=== PATIENT | female | born 1945 | race Caucasian/White ===

== ENCOUNTER 2019-12-02 11:52 | Outpatient (CLI) | payer MEDICARE, SELFPAY ==
--- NOTE | ~2019-12-02 | XR_ITS ---
XR abdomen/kub 1V DATE: 12/02/2019 12:18 INDICATION: Left flank pain TECHNIQUE: AP projection, 2 views COMPARISON: 11/22/2018 KUB FINDINGS: Right opaque sutures overlie the right upper quadrant. Radiopaque sutures and clips overlie the left upper quadrant. A vascular stent overlies the right common iliac artery. There are some nondilated gas distended small bowel segments overlying the left lower quadrant. No benita wel obstruction is evident. The psoas shadows are intact. No visceromegaly is detected. There are at least several faint calcifications overlying the left kidney and at least one overlying the right kid marybel, suggesting possible nephrolithiasis. No obvious ureteral calcified calculus is detected. Noncont rast CT abdomen pelvis examination would be more sensitive and accurate for detection and localizatio n of urinary tract stones. Bilateral calcified pelvic phleboliths are noted. IMPRESSION: Nonspecific bowel gas pattern Possible nephrolithiasis Postoperative changes of left and right upper quadrants Right common iliac artery vascular stent Reviewed, dictated and finalized at Location A. Reviewed, dictated and finalized at location A.
== END 2019-12-02 11:53 | disposition home or self-care (01) ==
PROVIDERS: PCP Internal Medicine; Visit Provider Nurse Practitioner Adult Health
DX: R10.9 Unspecified abdominal pain (principal); Z98.890 Other specified postprocedural states; Z95.828 Presence of other vascular implants and grafts
CPT/HCPCS: 74018

== ENCOUNTER 2019-12-15 10:48 | Outpatient (CLI) | payer MEDICARE, SELFPAY ==
--- NOTE | ~2019-12-15 | CT_ITS ---
EXAMINATION: CT abdomen pelvis wo con EXAM DATE: 12/15/2019 11:09 INDICATION: Left flank pain. TECHNIQUE: Spiral CT of the abdomen and pelvis was performed without contrast. Axial, coronal and sag ittal images were reviewed. The dose-length product (DLP) for this examination was 381.77 mGy-cm. T he exposure was tailored according to patient size (auto mA exposure control), and iterative reconstr uction (ASIR) was used as additional dose reduction technique. There is no prior study for compariso n. FINDINGS: There is a 4 mm right inferior calyceal stone, a 2 mm left inferior calyceal stone. There a re no ureteral stones or hydronephrosis. The uterus is not identified and has likely been surgically resected. The bladder is unremarkable. There is a 9 mm left adrenal adenoma. The right adrenal gla nd, pancreas, liver, spleen are unremarkable. Gallbladder not identified, patient likely has had cho lecystectomy. There is no retroperitoneal or pelvic lymphadenopathy. There is mild scattered arter iosclerotic disease. The appendix is not positively visualized. There is no pericecal inflammatory change to suggest appe ndicitis. There is mild scattered colonic diverticulosis. There is no adjacent inflammatory change t o suggest diverticulitis. There are surgical changes from intact gastric bypass surgery. There is ex pected amount of colonic stool. No free intraperitoneal gas. The heart is normal in size. There are no pericardial or pleural effusions. The lung bases are unremarkable. There are no osteoblastic or osteolytic lesions identified. IMPRESSION: 1. Bilateral nonobstructing calyceal stones. 2. Mild scattered colonic diverticulosis. 3. Surgical changes. Reviewed, dictated and finalized at location A.
== END 2019-12-15 10:49 | disposition home or self-care (01) ==
LOC: ANHIMG 10:49
PROVIDERS: PCP Internal Medicine; Visit Provider Nurse Practitioner Adult Health
DX: R10.9 Unspecified abdominal pain (principal); N20.0 Calculus of kidney; K57.90 Diverticulosis of intestine, part unspecified, without perforation or abscess without bleeding
CPT/HCPCS: 74176

== ENCOUNTER 2020-01-13 07:37 | Outpatient (CLI) | payer MEDICARE, SELFPAY ==
--- NOTE | ~2020-01-13 | MR_ITS ---
EXAMINATION: MR MRCP wo con/w 3D wo ind pp DATE: 01/13/2020 09:20 INDICATION: Choledocholithiasis. TECHNIQUE: Magnetic resonance imaging (MRI) of the abdomen was performed without and with 15 mL Multi Jenaro intravenous contrast. Sequences included coronal T2-weighted FS FSE, coronal T2-weighted FSE, a xial T1-weighted LAVA, coronal FS FIESTA, axial dual-echo T1-weighted SPGR, coronal lava-FLEX, sagitt al T2-weighted FSE, axial T2-weighted FSE, and axial DWI. Thick-slab T2-weighted FSE images were obta ined for magnetic resonance cholangiopancreatography (MRCP). Maximum intensity projection 3-D reconst ructions of the volumetric data were created by the technologist. Postcontrast sequences included cor onal LAVA-flex and time course of axial T1-weighted LAVA. COMPARISON: CT abdomen and pelvis 12/15/2019 FINDINGS: ABDOMEN MRI: There is a tiny right pleural effusion. The liver and spleen are normal. The gallbladder is absent. There are 6 mm and 4 mm cystic lesions in the tail of the pancreas. The adrenal glands ar e normal. There is cortical thinning of the kidneys. There are cysts in the kidneys measuring up to 6 mm on the right. There are no dilated loops of bowel. There are no pathologically enlarged lymph nod es. There is no free intraperitoneal fluid. ABDOMEN MRCP: The common duct is normal and measures 6 mm. No choledocholithiasis. IMPRESSION: 1. Normal common duct. No choledocholithiasis. 2. 6 mm and 4 mm cystic lesions of the pancreas. The differential diagnosis includes pseudocyst, intr aductal papillary mucinous neoplasm (IPMN), mucinous cystic neoplasm (MCN), serous cystadenoma, and n euroendocrine tumor. Abdomen MRI without and with contrast is recommended in 2 years. Reviewed, dictated and finalized at location A. IMPRESSION: 1. Normal common duct. No choledocholithiasis. 2. 6 mm and 4 mm cystic lesions of the pancreas. The differential diagnosis inc ludes pseudocyst, intraductal papillary mucinous neoplasm (IPMN), mucinous cyst ic neoplasm (MCN), serous cystadenoma, and neuroendocrine tumor. Abdomen MRI wi thout and with contrast is recommended in 2 years.
[2020-01-13 08:30] LABS: Estimated Glomerular Filt Rate > 60
== END 2020-01-13 07:38 | disposition home or self-care (01) ==
LOC: ANHIMG 07:45
PROVIDERS: PCP Internal Medicine; Visit Provider Internal Medicine Gastroenterology
DX: K80.50 Calculus of bile duct without cholangitis or cholecystitis without obstruction (principal)
CPT/HCPCS: 74181; 76376; A9577

== ENCOUNTER 2020-02-06 01:18 | Outpatient (CLI) | payer MEDICARE, SELFPAY ==
[2020-02-06 17:41] LABS: SARS-CoV-2 RNA PCR Negative
== END 2020-02-06 01:19 | disposition home or self-care (01) ==
LOC: ANHCOVIDDT 01:18
PROVIDERS: PCP Internal Medicine; Visit Provider Internal Medicine Gastroenterology
DX: Z01.812 Encounter for preprocedural laboratory examination (principal); Z20.828 Contact with and (suspected) exposure to other viral communicable diseases
CPT/HCPCS: 87635; C9803; U0003

== ENCOUNTER 2020-02-08 02:05 | Day surgery (SDC) | payer MEDICARE, SELFPAY ==
[2020-02-01 10:20] VITALS: BMI 28.8
[2020-02-08 11:16] VITALS: BP 99/73; PULSE 81; RESP 16; TEMP 36.6; O2SAT 100
[2020-02-08] MEDS: LACTATED RINGERS 1,000 ML 150 ML IV CONT (11:21)
--- NOTE | 2020-02-08 11:40 | PM.HPGS ---
History of Present Illness History of Present Illness Consent: Risks, benefits, and alternatives have been discussed and questions answered. Patient agrees to proceed with procedure. Chief complaint: Hx Colon Polyps/ Epigastric Pain Narrative: Herminia Hawk is a 74 year old female with epigastric pain and history of colon polyps PMFSH Past Medical History Medical History (Updated 02/08/20 @ 11:55 by Bradley Carney MD) Arthritis CVA (cerebral vascular accident) work up was normal; unknown etiology GERD (gastroesophageal reflux disease) Hyperlipidemia Social History Social History Living arrangements: with family Spiritual care concerns: No Meds Home Medications and Allergies Home Medications Medication Instructions Recorded Confirmed Type atorvastatin 80 mg PO DAILY 02/01/20 02/01/20 History glimepiride 1 mg PO DAILY 02/01/20 02/01/20 History metformin 1,000 mg PO DAILY 02/01/20 02/01/20 History oxybutynin chloride 10 mg PO DAILY 02/01/20 02/01/20 History pantoprazole 40 mg PO DAILY 02/01/20 02/01/20 History Allergies Allergy/AdvReac Type Severity Reaction Status Date / Time codeine Allergy Mild GASTRIC Verified 02/08/20 11:14 BURNING Contrast Media Allergy Severe Loss of Uncoded 11/12/18 06:53 Consciousness Vital Signs Vital Signs - 24 hr 02/08/20 11:16 Temperature 36.6 C Pulse Rate 81 Respiratory Rate 16 Blood Pressure 99/73 L Pulse Oximetry 100 Exam Const: General: alert Orientation/consciousness: patient oriented x3 Resp: Auscultation: clear to auscultation bilaterally Cardio: Rhythm: regular rhythm GI: GI Palp: Yes Soft to palpation and No Tenderness to palpation present (GI) Neuro: General: patient oriented x3 Assessment and Plan Assessment and plan (1) Epigastric pain: Code(s): R10.13 - Epigastric pain Status: Acute Assessment and Plan: EGD with possible biopsy or dilatation or cautery. (2) Colon cancer screening: Code(s): Z12.11 - Encounter for screening for malignant neoplasm of colon Status: Acute Assessment and Plan: Colonoscopy with possible biopsy or polypectomy or cautery or injection of substances.
--- NOTE | 2020-02-08 11:40 | WPDANESEPPF ---
Anes - Initial Pre Proc Eval Procedure: Operation Date: 02/08/20 11:30 Proposed Procedures p Esophagogastroduodenoscopy & Screening Colonoscopy - Bradley Carney MD Date/Time: 02/08/20 11:40 Surgeon: Bradley Carney MD Pre Op Diagnosis: Hx Colon Polyps/ Epigastric Pain Patient Data Age: 74 Gender: F Height: 5 ft 3.5 in Weight: 76.1 kg Last Vital Signs Temp 97.9 F 02/08/20 11:16 Pulse 81 02/08/20 11:16 Resp 16 02/08/20 11:16 BP 99/73 L 02/08/20 11:16 Pulse Ox 100 02/08/20 11:16 Allergies Allergy/AdvReac Type Severity Reaction Status Date / Time codeine Allergy Mild GASTRIC Verified 02/08/20 11:14 BURNING Contrast Media Allergy Severe Loss of Uncoded 11/12/18 06:53 Consciousness Home Medications Medication Instructions Recorded Confirmed Type atorvastatin 80 mg PO DAILY 02/01/20 02/01/20 History glimepiride 1 mg PO DAILY 02/01/20 02/01/20 History metformin 1,000 mg PO DAILY 02/01/20 02/01/20 History oxybutynin chloride 10 mg PO DAILY 02/01/20 02/01/20 History pantoprazole 40 mg PO DAILY 02/01/20 02/01/20 History Patient hx anesthesia problems: none Family hx anesthesia problems: none [facility] Past Medical History Medical History (Updated 02/08/20 @ 11:40 by Rishabh Webb MD) Arthritis CVA (cerebral vascular accident) work up was normal; unknown etiology GERD (gastroesophageal reflux disease) Hyperlipidemia Social History Social History Living arrangements: with family Spiritual care concerns: No Anes - Eval Final PreProcedure Day of Procedure 02/08/20 11:40 Patient weight: overweight Heart: regular rate and rhythm Lungs: clear to auscultation Airway: Mallampati scale class II Neurological: alert and oriented Last oral intake: >/= 8 hours ASA classification: III Emergent: no Anesthetic plan: proceed Anesthesia type and monitoring: general GIVS and standard monitoring Informed Consent: The patient's anesthetic plan and its attendant risks and benefits were discussed with the patient/family/POA. Questions were solicited and answers provided to the satisfaction of the patient/family/POA.
[2020-02-08 12:12] VITALS: BP 95/33; PULSE 67; RESP 23; O2SAT 98
[2020-02-08 12:22] VITALS: BP 113/40; PULSE 71; RESP 25; O2SAT 98
[2020-02-08 12:32] VITALS: BP 129/49; PULSE 71; RESP 20; O2SAT 100
== END 2020-02-08 13:03 | disposition home or self-care (01) ==
PROVIDERS: PCP Internal Medicine; Visit Provider Internal Medicine Gastroenterology
PROC: 0DJ08ZZ Inspection of Upper Intestinal Tract, Via Natural or Artificial Opening Endoscopic (ICD-10-PCS; CPT 43235; principal; 2020-02-08 11:30)
DX: Z12.11 Encounter for screening for malignant neoplasm of colon (principal); K64.8 Other hemorrhoids; Z86.010 Personal history of colon polyps; R10.12 Left upper quadrant pain; R10.13 Epigastric pain; Z98.84 Bariatric surgery status; E78.5 Hyperlipidemia, unspecified; K21.9 Gastro-esophageal reflux disease without esophagitis; Z86.73 Personal history of transient ischemic attack (TIA), and cerebral infarction without residual deficits; Z79.84 Long term (current) use of oral hypoglycemic drugs
CPT/HCPCS: 43235; G0105; J2704; J7120

== ENCOUNTER → 2020-05-08 10:17 | Outpatient (CLI) | payer MEDICARE, SELFPAY ==
--- NOTE | ~2020-05-08 | MM_ITS ---
EXAMINATION: MM screening efe BI w giuseppe HISTORY: Screening mammogram TECHNIQUE: Craniocaudal and mediolateral oblique 3-D tomosynthesis images were obtained and synthetic 2-D images were generated. CAD analysis was submitted and interpreted. COMPARISON: 07/01/2018, 03/03/2017, 10/16/2014 bilateral digital screening mammogram examinations BREAST PARENCHYMAL COMPOSITION: There are scattered areas of fibroglandular density. FINDINGS: There are scattered bilateral benign calcifications. There is no evidence of suspicious mas s, calcification, or architectural distortion to suggest malignancy in either breast. There has been no suspicious interval change. IMPRESSION: 1. No mammographic evidence of malignancy. 2. Recommend routine screening mammography in one year. BI-RADS Category 2: Benign finding(s). Reviewed, dictated and finalized at location A. ER LEVEL TEACHING ASSISTANT
--- NOTE | ~2020-05-08 | DEXA_ITS ---
Bone Density Report Name: Herminia Hawk Age: 74 Sex: Female Ethnicity: White Date of : 1945 Indication: osteopenia; height loss; hysterectomy; postmenopausal Referring Provider: NIKHIL, AVTAR Ruano Study: Bone densitometry was performed. Exam Date: May 08, 2020 Accession number: [id number] Bone Density: Region BMD T-score Z-score Classification AP Spine (L1-L4) 0.993 -0.5 1.8 Normal Femoral Neck (Left) 0.555 -2.6 -0.6 Osteoporosis Total Hip (Left) 0.647 -2.4 -0.7 Osteopenia Femoral Neck (Right) 0.631 -2.0 0.1 Osteopenia Total Hip (Right) 0.636 -2.5 -0.8 Osteoporosis Total Hip Mean 0.642 -2.5 -0.8 Osteopenia World Health Organization criteria for BMD impression classify patients as: Normal (T-score at or above -1.0), Osteopenia (T-score between -1.0 and -2.5), or Osteoporosis (T-score at or below -2.5). 10-year Fracture Risk: FRAX not reported because: Some T-score for Spine Total or Hip Total or Femoral Neck at or below -2.5 Previous Exams: Region Exam Age BMD T-score BMD Change BMD Change Date g/cm2 vs Baseline vs Previous AP Spine(L1-L4) 05/08/2020 74 0.993 -0.5 0.009 0.009 09/28/2012 67 0.983 -0.6 Total Hip(Left) 05/08/2020 74 0.647 -2.4 -0.108* -0.108* 09/28/2012 67 0.754 -1.5 Total Hip(Right) 05/08/2020 74 0.636 -2.5 -0.094* -0.094* 09/28/2012 67 0.730 -1.7 *Denotes significance at 95% confidence level, LSC for AP Spine = 0.022 g/cm2, LSC for Total Hip = 0.027 g/cm2 Clinical Information Provided by Patient: Smokes Has the following medical conditions: Hysterectomy Patient maximum height was 64 Menopause Age: 26 No regular weight bearing exercise Does not regularly consume dairy products Drinks caffeinated beverages Onset of menses at age 13 Number of children 2 Impression: The patient has osteoporosis, based on the Left Femoral Neck T-score. The patient has risk factors, including: smoking. The BMD for the Total Hip(Left) decreased, changing by -0.108 since the last DXA exam. The BMD for the Total Hip(Right) decreased, changing by -0.094 since the last DXA exam. Discussion: INCREASED RISK OF FRACTURE. BONE DENSITY IS UNDESIRABLY LOW AT ONE OR MORE SKELETAL SITES, CONSISTENT WITH POSTMENOPAUSAL OSTEOPOROSIS. This patient's lowest T-score meets the World Health Organization's (WHO) criteria for osteoporosis at one or more sites (T-score -2.5 or below). In
== END ==
PROVIDERS: PCP Internal Medicine; Visit Provider Internal Medicine
DX: Z12.31 Encounter for screening mammogram for malignant neoplasm of breast (principal); N95.9 Unspecified menopausal and perimenopausal disorder; M85.852 Other specified disorders of bone density and structure, left thigh; M85.851 Other specified disorders of bone density and structure, right thigh; M81.0 Age-related osteoporosis without current pathological fracture
CPT/HCPCS: 77063; 77067; 77080

== ENCOUNTER → 2020-11-26 11:59 | Outpatient (CLI) | payer MEDICARE, SELFPAY ==
--- NOTE | ~2020-11-26 | MR_ITS ---
EXAMINATION: MR abdomen wo/w con INDICATION: Iron deficiency anemia secondary to blood loss TECHNIQUE: Coronal SSFSE ARC, WATER:coronal LAVA-FLEX, Coronal 2D FIESTA FatSat, Axial SSFSE BH ARC, Axial 3D DualEcho BH, Axial SSFSE-IR, Axial DWI b=500, Axial 2D FIESTA FatSat, pre and dynamic postco ntrast Axial LAVA ARC, postcontrast Coronal In and Opposed phase LAVA FLEX COMPARISON: 12/24/2019 CONTRAST: 01/13/2020 FINDINGS: There are stable cystic lesions of the pancreatic tail measuring 6 mm and 4 mm. No new panc reatic lesion is identified. The liver, spleen, and adrenal glands are normal. The gallbladder is abs ent. There is cortical thinning of the kidneys. Cysts of the kidneys measure up to 10 mm on the right . There are no pathologically enlarged abdominal lymph nodes. No dilated loops of bowel are evident. IMPRESSION: 1. Stable cystic lesions of the pancreatic tail with differential as previously described. Follow-up MRI without and with contrast in two years is recommended. 2. No correlate for iron deficiency anemia. Reviewed, dictated and finalized at location B. IMPRESSION: 1. Stable cystic lesions of the pancreatic tail with differential as previously described. Follow-up MRI without and with contrast in two years is recommended . 2. No correlate for iron deficiency anemia.
[2020-11-26 12:40] LABS: Estimated Glomerular Filt Rate 49
== END ==
PROVIDERS: PCP Internal Medicine; Visit Provider Internal Medicine Medical Oncology
DX: D50.0 Iron deficiency anemia secondary to blood loss (chronic) (principal); D49.0 Neoplasm of unspecified behavior of digestive system
CPT/HCPCS: 74183; A9577

== ENCOUNTER 2021-02-13 13:02 | Outpatient (CLI) | payer MEDICARE, SELFPAY ==
--- NOTE | ~2021-02-13 | XR_ITS ---
EXAMINATION: XR barium swallow modified DATE: 02/13/2021 14:02 INDICATION: Dysphagia, unspecified TECHNIQUE: Modified barium esophagram was performed by myself to administered fluoroscopy, in conjun ction with speech pathologist who administered barium in varying consistencies as per speech patholog ist documentation. This was recorded on tape. A single fluoroscopic spot image was recorded. The DAP for this procedure was 1.395 Gycm2. Fluoroscopy exposure time was 2.3 minutes. FINDINGS: Oral stage: Adequate function. Pharyngeal phase: Adequate function. Laryngeal penetration: None. Aspiration: None. Laryngeal sensitivity: Present. IMPRESSION: Normal modified barium swallow. Please refer to speech pathologist findings and specific feeding recommendations. Reviewed, dictated and finalized at location A.
--- NOTE | 2021-02-15 12:47 | STOPEVAL ---
MODIFIED BARIUM SWALLOW STUDY Thank you for referring Herminia Hawk to [facility].? Attending Provider: Bradley Carney MD * Outpatient Evaluation Start: 02/14/21 13:50 Freq: Status: Active Protocol: Document 02/13/21 13:30 BAS (Rec: 02/14/21 13:51 BAS [email or web address]) Therapy Assessment Status Assessment Status Assessment Status Evaluation Outpatient Past Medical History Neurological History Hx Cerebrovascular Accident (CVA) Yes: 07/07 Cardiovascular History Hx Hypercholesterolemia Yes Respiratory History Hx Respiratory Disorders No Significant History Gastrointestinal History Hx Appendectomy Yes Hx Cholecystectomy Yes Hx Gastroesophageal Reflux Disease Yes Hx Other Gastrointestinal Disorders Yes: STOMACH STAPLE Genitourinary History Hx Other Genitourinary Disorders Yes: OVERACTIVE BLADDER Musculoskeletal History Hx Arthritis Yes Hx Back Pain Yes Hx Spinal Surgery Yes Hematological History Hx Hematological Disorders No Significant History Endocrine History Hx Diabetes Yes HEENT History Hx HEENT Disorders No Significant History Integumentary History Hx Skin Disorders No Significant History Pain History History of Any Previous or Ongoing No Significant History Instance of Pain Anesthesia History Hx Anesthesia Reactions No Significant History Pain Assessment Timing of Pain Assessment Timing of Pain Assessment Assessment Self Report Self Report Pain Level 0 Pain Score Pain Score 0: Self Report Modified Barium Swallow Evaluation Consistency Solid Consistency 5 mL Other Amount cracker Method of Presentation Spoon Oral Preparatory Symptoms Within Functional Limits Oral Phase Symptoms Within Functional Limits Pharyngeal Phase Symptoms Within Functional Limits, Residue in [place],Residue/ Pyriform Sinus Severity of Vallecular Residue Trace - 1-5 % Trace Coating of the Mucosa Severity of Pyriform Sinus Residue Mild - 5-25 % Up Wall to Quarter Full 8 Point Laryngeal Penetration-Aspiration Material Does Not Enter Airway Scale Cervical/Esophageal Symptoms Within Functional Limits Mixed Consistency 5 mL Other Amount Cut up fruit with syrup coated /mixed with pudding Method of Presentation Spoon Oral Preparatory Symptoms Within Functional Limits Oral Phase Symptoms Within Functional Limits Pharyngeal Phase Symptoms Within Functional Limits, Residue in [place],Residue/ Pyriform Sinus
== END 2021-02-13 13:03 | disposition home or self-care (01) ==
LOC: ANHIMG 13:06
PROVIDERS: PCP Internal Medicine; Visit Provider Internal Medicine Gastroenterology
DX: R13.10 Dysphagia, unspecified (principal)
CPT/HCPCS: 92611

== ENCOUNTER 2021-02-18 10:36 | Outpatient (CLI) | payer MEDICARE, SELFPAY ==
--- NOTE | ~2021-02-18 | CT_ITS ---
EXAMINATION: CT soft tissue neck wo con EXAM DATE: 02/18/2021 10:57 INDICATION: Dysphagia with hard foods. Contrast allergy. TECHNIQUE: Spiral CT of the neck was performed without contrast. Axial, coronal and sagittal images were reviewed. The dose-length product (DLP) for this examination was 297.59 mGy-cm. The exposure was tailored according to patient size (auto mA exposure control), and iterative reconstruction (ASIR ) was used as additional dose reduction technique. There is no prior study for comparison. FINDINGS: The thyroid gland is unremarkable. The submandibular and parotid glands are symmetric. There is no cervical lymphadenopathy. There are no masses identified. The superior mediastinum is unremarkable. Some low-density in the dependent aspect of the tracheal airway incompletely imaged but imaged portion density suggests this is mucous. Parapharyngeal and pre-glottic fat planes are pr eserved. Limited evaluation of cervical vessels on this noncontrast study. There is mild left carot id bulb arterial sclerosis. The orbits are unremarkable. Visualized sinuses and mastoid air cells are well aerated. Lung apices are clear. Moderate disc disease at C5-6 and 6-7. IMPRESSION: 1. Some low-density endotracheal material probably mucous. 2. Lower cervical disc disease. Reviewed, dictated and finalized at location A.
== END 2021-02-18 10:37 | disposition home or self-care (01) ==
LOC: ANHIMG 10:38
PROVIDERS: PCP Internal Medicine; Visit Provider Internal Medicine Medical Oncology
DX: R13.10 Dysphagia, unspecified (principal); M50.30 Other cervical disc degeneration, unspecified cervical region
CPT/HCPCS: 70490

== ENCOUNTER 2021-04-22 13:13 | Outpatient (CLI) | payer MEDICARE, SELFPAY ==
--- NOTE | ~2021-04-22 | XR_ITS ---
EXAMINATION: XR abdomen/kub 1V EXAM DATE: 04/22/2021 13:34 INDICATION: Right ureteral stone follow-up. TECHNIQUE: Frontal projection of the upper abdomen, frontal projection lower abdomen/pelvis for inter pretation. Comparison is made to prior examination from 12/02/2019. FINDINGS: There is a right-sided double-J ureteral stent in position. There is approximately 8 mm ca lcification along the proximal aspect of the stent which could be a ureteral stone. There is bowel ga s obscuring both renal contours but possibility of smaller bilateral nephrolithiasis. Small densities projecting over the distal aspect of the stent are probably phleboliths seen on prior study. No smal l bowel obstruction. There are bony degenerative changes. IMPRESSION: 1. Right ureteral stent in position. 2. Probable right proximal ureteral stone, smaller bilateral nephrolithiasis. Reviewed, dictated and finalized at location A. NG MACHINE SET UP OPERATOR
== END 2021-04-22 13:14 | disposition home or self-care (01) ==
LOC: ANHIMG 13:18
PROVIDERS: PCP Internal Medicine; Visit Provider Urology
DX: N20.1 Calculus of ureter (principal)
CPT/HCPCS: 74018

== ENCOUNTER 2021-05-02 10:48 | Outpatient (CLI) | payer MEDICARE, SELFPAY ==
--- NOTE | 2021-05-02 11:00 | ECG_ITS ---
Measurements Intervals [place] Rate: 79 P: 67 AL: 141 QRS: -22 QRSD: 126 T: 13 QT: 395 QTc: 453 Interpretive Statements SINUS RHYTHM POSSIBLE LEFT ATRIAL ENLARGEMENT RIGHT BUNDLE BRANCH BLOCK BASELINE ARTIFACT- I, AVR, V2, V4-V6 ABNORMAL ECG Electronically Signed On 05-02-2021 11:25:58 FOOTWEAR SALES LEADER by Carl Maya D.O.
[2021-05-02 11:52] LABS: Hematocrit 39.7 % (37.0-47.0); Hemoglobin 12.7 g/dL (12.0-15.0)
[2021-05-02 12:00] LABS: Anion Gap 6 mmol/L (8-16); Blood Urea Nitrogen 18 mg/dL (7-17); Calcium 7.8 mg/dL (8.4-10.2); Carbon Dioxide 25 mmol/L (22-30); Chloride 102 mmol/L (98-107); Estimated Glomerular Filt Rate 34; Glucose 230 mg/dL (65-110); Potassium 3.7 mmol/L (3.4-5.0); Sodium 133 mmol/L (137-145)
[2021-05-02 12:05] LABS: INR 1.1; Prothrombin Time 13.8 Seconds (11.1-14.7)
[2021-05-02 12:06] LABS: Partial Thromboplastin Time 26.6 SECONDS (22.3-36.8)
== END 2021-05-02 10:49 | disposition home or self-care (01) ==
LOC: ANHSURGERY 10:55
PROVIDERS: Anesthesiology; PCP Internal Medicine; Visit Provider Urology
DX: N20.1 Calculus of ureter (principal); D50.9 Iron deficiency anemia, unspecified; E11.9 Type 2 diabetes mellitus without complications; I51.9 Heart disease, unspecified; Z01.818 Encounter for other preprocedural examination; I45.10 Unspecified right bundle-branch block
CPT/HCPCS: 36415; 80048; 85014; 85018; 85610; 85730; 87086; 87088; 93005

== ENCOUNTER 2021-05-10 01:18 | Day surgery (SDC) | payer MEDICARE, SELFPAY ==
[2021-04-29 13:52] VITALS: BMI 23.0
--- NOTE | 2021-04-29 14:30 | PC.NURSE ---
Report to the Outpatient Waiting Room, entrance under the green pavilion located off [facility], at time __6:00AM on date __05/10/21 . OR Time: __7:30AM . - You and your visitor will be asked a series of questions to screen for COVID 19 for your protection. - A mask is required within the hospital. - Only one visitor is allowed at this time. Patient visitors will be guided where to wait when not with patient. Preoperative COVID Testing Requirements: No COVID Test needed if: (proof is required; if not received patient will have Rapid Test prior to entry) - Patient has received COVID Vaccine at least 14 days prior to procedure date or - Patient has positive COVID test result within last 90 days of surgery date. COVID Test needed if above criteria is not met If not COVID vaccinated a COVID test must be conducted within 72 hours of surgery and patient is asked to isolate self from time of testing until procedure. You will go to the [email or web address] Testing Site for your COVID testing. The [email or web address] Testing site is located at the corner of [address] from [facility]. You will only be called if COVID results are positive and your surgeon may reschedule your elective surgery date. Patients may have clear liquids (water, carbonated beverages, clear teas, apple juice) until 3 hours prior to surgery with a maximum of 20 ounces. - No food from midnight until time of surgery - Infants may have breast milk until 4 hours before surgery, infant formula 6 hours prior to surgery. - Children will be allowed to drink immediately following surgery. If applicable, please bring a bottle or sippy cup to assist with drinking. Juice, water, soda, and popsicles are readily available. For infants on formula, please bring formula the day of surgery. Pacifiers are allowed. Take the following medications with a SIP of water the morning of surgery: ___TRAMADOL NEEDED Medications to discontinue per physician NONE Date to take last dose Please no make-up, nail uzbek, hairspray, perfume, deodorant, or body powder the day of surgery. No jewelry (including any body piercings) or valuables the day of surgery, leave them at home. Please take a shower or bath the night before, or the morning of, surgery with an antibacterial soap. Wear comfortable, loose fitting clothing. Children are encouraged to wear pajamas. - Jewelry must be removed prior to entering the operating room. Rings and piercings that are not removed may be cut off. - The hospital will not accept responsibility for valuables. - Please leave all valuables, including medications, at home the day of surgery. If you are going home after surgery, a licensed straddle bug driver must drive you home. - NO public transportation without another adult. - We recommend that an adult stay with you for 24 hours following discharge. - We also recommend that you do not drive, make important decision, drink alcoholic beverages, or take any drugs that were not prescribed by your health care provider for at least 24 hours after your discharge time. For Pediatric surgeries, we recommend two adults accompany the child home (only one inside the building at this time). Follow any additional instructions given to you from your surgeon. Telephone instructions given to ___PATIENT and asked if any additional questions and then verbalized understanding. Patient advised to call surgeon office or pre surgery nurse liaison [phone] if any additional questions.
--- NOTE | 2021-05-09 15:08 | WPDANESEPPF ---
Anes - Initial Pre Proc Eval Procedure: Operation Date: 05/10/21 08:15 Proposed Procedures p Right Extracorporeal Shock Wave Lithotripsy - Denis Rose MD <Gabino Johnson, DO - Last Filed: 05/11/21 12:59> Date/Time: 05/09/21 15:08 <Gabino Johnson, DO - Last Filed: 05/11/21 12:59> Surgeon: Denis Rose MD <Gabino Johnson, DO - Last Filed: 05/11/21 12:59> Pre Op Diagnosis: right ureteral stone <Gabino Johnson DO - Last Filed: 05/11/21 12:59> Patient Data Age: 75 Gender: F Height: 1.6 m Weight: 59 kg <Gabino Johnson DO - Last Filed: 05/11/21 12:59> Allergies Allergy/AdvReac Type Severity Reaction Status Date / Time codeine AdvReac Mild GASTRIC Verified 05/10/21 10:22 BURNING Contrast Media Allergy Severe Loss of Uncoded 05/10/21 10:22 Consciousness <Gabino Johnson DO - Last Filed: 05/11/21 12:59> Home Medications Medication Instructions Recorded Confirmed Type metoclopramide HCl 10 mg tablet 10 mg PO BID PRN 02/05/21 05/10/21 History sucralfate 1 gram tablet 1 g PO BID tablet 02/05/21 05/10/21 History levofloxacin 750 mg PO EVERY OTHER DAY 04/29/21 05/10/21 History tramadol 50 mg PO Q6-8H PRN 04/29/21 05/10/21 History <Gabino Johnson DO - Last Filed: 05/11/21 12:59> Patient hx anesthesia problems: none <Ramu Oliveros MD - Last Filed: 05/10/21 06:57> Family hx anesthesia problems: none <Ramu Oliveros MD - Last Filed: 05/10/21 06:57> Results Review: All pre-operative results and documents have been reviewed as part of the pre-operative evaluation. <Gabino Johnson DO - Last Filed: 05/11/21 12:59> [facility] Past Medical History Medical History: Medical History (Updated 05/09/21 @ 15:09 by Gabino Johnson DO) Arthritis CVA (cerebral vascular accident) work up was normal; unknown etiology Diabetes type 2, controlled GERD (gastroesophageal reflux disease) Hyperlipidemia PVD (peripheral vascular disease) <Gabino Johnson DO - Last Filed: 05/11/21 12:59> Surgical History Surgical History: Surgical History (Updated 05/09/21 @ 15:09 by Gabino Johnson DO) History of appendectomy History of hysterectomy S/P insertion of iliac artery stent Status post gastric bypass for obesity <Gabino Johnson DO - Last Filed: 05/11/21 12:59> Family History Family History: Family History (Updated 02/05/21 @ 12:38 by Antonina Oates MA) Sibling Diabetes mellitus Hypertension Heart disease Thyroid disease Cerebrovascular accident <Gabino Johnson DO - Last Filed: 05/11/21 12:59> Social History Social History: Social History (Updated 02/05/21 @ 12:41 by Antonina Oates MA) Smoking packs per day: 1 Smoking cigarettes per day: 20.0 Years smoked: 50 Smoking pack-years: 50.00 Smoking status: Current every day smoker Tobacco type: cigarettes Additional smoking assessment comments: TAPERING DOWN NOW-4 CIG/DAY Alcohol intake: never Alcohol use details: [employer] YOU[employer] ADULT Substance use: never Living arrangements: with family Additional living arrangements comments: [facility] Gender identity (if verbalized by the patient): Female Spiritual care concerns: No <Gabino Johnson DO - Last Filed: 05/11/21 12:59> Anes - Eval Final PreProcedure Day of Procedure 05/09/21 15:08 <Gabino Johnson DO - Last Filed: 05/11/21 12:59> Patient weight: normal <Gabino Johnson DO - Last Filed: 05/11/21 12:59> Heart: regular rate and rhythm <Gabino Johnson DO - Last Filed: 05/11/21 12:59> Lungs: clear to auscultation and normal air movement <Gabino Johnson, - Last Filed: 05/11/21 12:59> Airway: Mallampati scale class II <Gabino Johnson, - Last Filed: 05/11/21 12:59> Neurological:
[2021-05-10] VITALS (9 sets, daily range): BP systolic 118–166; BP diastolic 60–78; PULSE 70–83; RESP 18–21; TEMP 36.4–36.9; O2SAT 100
--- NOTE | ~2021-05-10 | XR_ITS ---
XR abdomen/[facility] 1V DATE: 05/10/2021 06:24 INDICATION: Lithotripsy TECHNIQUE: AP view COMPARISON: 04/22/2021 [facility] 12/15/[address] abdomen pelvis FINDINGS: Approximately 6.7 mm calcified density overlies the proximal right ureter adjacent to the i nternal urinary stent, at the L3-4 level. Bowel shadows overlying the renal silhouettes may obscure additional renal calculi. Noncontrast CT ab domen pelvis examination would be more accurate and sensitive for detection of urinary tract calculi. Radiopaque sutures and clips overlie the upper quadrants of the abdomen. Right common iliac artery stent. Abdominal aortic and iliac arterial calcifications. IMPRESSION: Right internal urinary stent; probable 6.7 mm proximal right ureteral calcified calculus at L3-4 level Reviewed, dictated and finalized at [facility]. Reviewed, dictated and finalized at [facility]. [employer] IMPRESSION: Right internal urinary stent; probable 6.7 mm proximal right ureter al calcified calculus at L3-4 level
[2021-05-10] MEDS: LACTATED RINGERS 1,000 ML 30 ML IV CONT (07:30)
--- NOTE | 2021-05-10 07:33 | WPDHPUPDATE1 ---
History and Physical Update Update Date/Time: 05/10/21 07:33 History and Physical has been reviewed, including an updated exam of the patient. There are NO changes in the patient's condition. Risks, benefits, and alternatives have been discussed and questions answered. Patient agrees to proceed with procedure. Proceed with eswl of right ureteral calculus.
[2021-05-10 07:34] LABS: Glucose Point of Care 83 mg/dl (65-105)
[2021-05-10] MEDS: ceFAZolin 2 GM/D5W 50 ML 2 GM/50 ML BAG IVPB (08:20)
--- NOTE | 2021-05-10 09:11 | W.PM.PROC2 ---
Procedure Note - Detailed Date of Procedure 05/10/21 Pre-op Diagnosis right ureteral stone Post-op Diagnosis same Procedure Performed Lithotripsy of right ureteral calculus Surgeon Denis Rose MD Anesthesia general Description of Procedure Patient is taken to the operative suite correctly identified. Once anesthesia was obtained the stone was localized in both planes. Three thousand shocks were given the stone. There appeared be some fragmentation. She did require gating. She was taken recovery stable condition. To follow up in 7-10 days with [facility]. Drains Yes Packing No Pathology none sent Complications No immediate complications Condition stable Disposition PACU
[2021-05-10 09:47] LABS: Glucose Point of Care 85 mg/dl (65-105)
[2021-05-10] MEDS: traMADol HCL (*CRX) 50 MG TABLET PO (11:12)
== END 2021-05-10 11:30 | disposition home or self-care (01) ==
PROVIDERS: PCP Internal Medicine; Visit Provider Urology
PROC: (CPT 50590; principal; 2021-05-10 08:15)
DX: N20.2 Calculus of kidney with calculus of ureter (principal); M19.90 Unspecified osteoarthritis, unspecified site; Z86.73 Personal history of transient ischemic attack (TIA), and cerebral infarction without residual deficits; E11.9 Type 2 diabetes mellitus without complications; K21.9 Gastro-esophageal reflux disease without esophagitis; E78.5 Hyperlipidemia, unspecified; I73.9 Peripheral vascular disease, unspecified; F17.210 Nicotine dependence, cigarettes, uncomplicated; N39.46 Mixed incontinence; R10.9 Unspecified abdominal pain; Z79.84 Long term (current) use of oral hypoglycemic drugs
CPT/HCPCS: 50590; 74018; 82948; A9270; J0690; J2250; J2370; J2405; J2704; J7120

== ENCOUNTER 2021-05-29 11:51 | Outpatient (CLI) | payer MEDICARE, SELFPAY ==
--- NOTE | ~2021-05-29 | XR_ITS ---
EXAMINATION: XR abdomen/[facility] 1V DATE: 05/29/2021 12:37 INDICATION: Right ureteral stone. TECHNIQUE: A supine view of the abdomen on 2 radiographs was obtained. COMPARISON: Abdomen radiograph 05/10/2021, CT abdomen and pelvis 12/15/2019 FINDINGS: There are no dilated loops of bowel. There is a right internal ureteral stent in expected p osition. There is an 8 mm stone at right ureterovesicular junction. There are phleboliths in the pelv is and right ovarian vein. The kidneys are obscured by bowel. There is a stent in right common iliac artery. IMPRESSION: 1. 8 mm stone at right ureterovesicular junction with right internal ureteral stent in expected posi tion. Reviewed, dictated and finalized at [facility]BER IMPRESSION: 1. 8 mm stone at right ureterovesicular junction with right internal ureteral stent in expected position.
== END 2021-05-29 11:52 | disposition home or self-care (01) ==
LOC: ANHIMG 12:03
PROVIDERS: PCP Internal Medicine; Visit Provider Urology
DX: N20.1 Calculus of ureter (principal)
CPT/HCPCS: 74018